=== PATIENT | male | born 1965 | race Caucasian/White ===

== ENCOUNTER → 2018-10-15 | Outpatient (CLI) | payer OTHER ==
--- NOTE | 2018-10-15 11:29 | CARD ---
MR#: [id number] Date of Study: 10/15/2018 Ordering Physician: SONAM OLMSTEAD, Referring Physician: SONAM OLMSTEAD, Tech: Tiki Belle SON APPROVED REPORT EXAM: Two-dimensional and M-mode echocardiogram with Doppler and color Doppler. Other Information Quality : Technically LimitedHR: 80bpm Rhythm : NSRTechnically limited study due to body habitus. INDICATION Cardiomyopathy 2D DIMENSIONS RVDd2.5 (2.9-3.5cm)Left Atrium(2D)3.4 (1.6-4.0cm) IVSd1.2 (0.7-1.1cm)Aortic Root(2D)3.9 (2.0-3.7cm) LVDd5.8 (3.9-5.9cm)LVOT Diameter2.5 (1.8-2.4cm) PWd1.2 (0.7-1.1cm)LVDs5.1 (2.5-4.0cm) FS (%) 13.4 %SV47.7 ml Aortic Valve AoV Peak Babak.105.0cm/sAoV VTI20.8cm AO Peak GR.4.4mmHgLVOT Peak Babak.83.8cm/s LVOT VTI 16.49cmAO Mean GR.3mmHg LILLIAN (VMAX)3.11et5TZN (VTI)3.93cm2 Mitral Valve MV E Rvgxaeyb54.7cm/sMV DECEL GYSO419rd MV A Zepnbzvh72.1cm/sE/A Ratio0.7 MV A Iuczmiun616mu Pulmonary Valve PV Peak Eoszsmqf68.2cm/sPV Peak Grad.3mmHg LEFT VENTRICLE The Left Ventricle is borderline dilated. There is mild concentric left ventricular hypertrophy. The ejection fraction is moderately impaired. The Ejection Fraction is estimated at 35%. There is global hypokinesis of the left ventricle. Transmitral Doppler flow pattern is Grade I-abnormal relaxation pa ttern. RIGHT VENTRICLE The right ventricle is normal size. There is normal right ventricular wall thickness. The right ventr icular systolic function is normal. ATRIA The left atrium size is normal. The right atrium size is normal. The interatrial septum is intact wit h no evidence for an atrial septal defect or patent foramen ovale as noted on 2-D or Doppler imaging. AORTIC VALVE The aortic valve is probably trileaflet. Doppler and Color Flow revealed no significant aortic regurg itation. There is no significant aortic valvular stenosis. MITRAL VALVE The mitral valve is normal in structure and function. There is no evidence of mitral valve prolapse. There is no mitral valve stenosis. Doppler and Color Flow revealed trace mitral valve regurgitation. TRICUSPID VALVE The tricuspid valve is normal in structure and function. Doppler and Color Flow revealed no tricuspid valve regurgitation noted. There is no tricuspid valve prolapse or vegetation. There is no tricuspid valve stenosis. PULMONIC VALVE The pulmonic valve is not well visualized. GREAT VESSELS The aortic root is mildly enlarged. The ascending aorta is normal in size. The IVC is normal in size and collapses >50% with inspiration. PERICARDIAL EFFUSION There is no evidence of significant pericardial effusion. Critical Notification Critical Value: No <Conclusion> The Left Ventricle is borderline dilated. The ejection fraction is moderately impaired. The Ejection Fraction is estimated at 35%. There is global hypokinesis of the left ventricle. There is mild concentric left ventricular hypertrophy. There is no significant aortic valvular stenosis. Doppler and Color Flow revealed no significant aortic regurgitation. Doppler and Color Flow revealed trace mitral valve regurgitation. Doppler and Color Flow revealed no tricuspid valve regurgitation noted. Signed by : Ghassan Floyd MD Electronically Approved : 10/15/2018 11:29:03
== END | disposition home or self-care (01) ==
LOC: ECHO 10:41
PROVIDERS: ATTEND Nurse Practitioner
DX: I51.7 Cardiomegaly (principal); I25.5 Ischemic cardiomyopathy
CPT/HCPCS: 93306

== ENCOUNTER → 2019-01-09 | Outpatient (CLI) | payer OTHER ==
[~2019-01-09] MED LIST: HEPARIN for NUC MED 500 UNIT/5 ML DISP.SYRIN. IV ONE
--- NOTE | 2019-01-24 08:04 | RAD ---
Examination: MUGA History: Cardiomyopathy - heart rate variable 60 - 140 23mci 99mTc RBC for scan Comparison/Correlation: None Findings: 23 mCi technetium 99m UltraTag was utilized for radionuclide ventriculography them. Heart rate during the examination is 89 bpm. Ejection fraction of 28.6 percent is evident. Left ventricular wall motion is within normal limits on images provided. Impression: Low left ventricular ejection fraction of 28.6 percent. Electronically signed by: Danny Beltrán MD (01/24/2019 8:01 AM) [facility]
== END | disposition home or self-care (01) ==
LOC: NM 12:39
PROVIDERS: ATTEND Internal Medicine Cardiovascular Disease
DX: I25.5 Ischemic cardiomyopathy (principal); I10 Essential (primary) hypertension; E11.9 Type 2 diabetes mellitus without complications; Z79.01 Long term (current) use of anticoagulants; Z87.891 Personal history of nicotine dependence
CPT/HCPCS: 78472; A9560

== ENCOUNTER → 2020-07-07 | Outpatient (CLI) | payer OTHER ==
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
--- NOTE | 2020-07-07 13:38 | RAD ---
EXAM: Cervical spine, 6 views. HISTORY: Pain. COMPARISON: None. FINDINGS: 6 views of the cervical spine are obtained. There is degenerative endplate remodeling predo minantly at the mid lower cervical levels. There is disc space narrowing at C5-C6. There is facet and uncovertebral arthropathy at C5-C6 and C6-C7. There is a cardiac pacemaker partially included on the [id number]. IMPRESSION: Degenerative change primarily at the lower cervical levels. No acute osseous finding. Electronically signed by: Ursula Bowie MD (07/07/2020 1:36 PM) [email or web address]
== END ==
LOC: PMG 12:39
PROVIDERS: ATTEND Physician Assistant
DX: M47.816 Spondylosis without myelopathy or radiculopathy, lumbar region (principal); M47.812 Spondylosis without myelopathy or radiculopathy, cervical region; M48.07 Spinal stenosis, lumbosacral region; M48.02 Spinal stenosis, cervical region; Z95.0 Presence of cardiac pacemaker
CPT/HCPCS: 72050; 72110

== ENCOUNTER → 2020-07-12 | Outpatient (CLI) | payer OTHER ==
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
== END ==
LOC: CT 10:56
PROVIDERS: ATTEND Nurse Practitioner Family
DX: M47.817 Spondylosis without myelopathy or radiculopathy, lumbosacral region (principal); M51.27 Other intervertebral disc displacement, lumbosacral region; M25.78 Osteophyte, vertebrae; M48.07 Spinal stenosis, lumbosacral region; V87.7XXD Person injured in collision between other specified motor vehicles (traffic), subsequent encounter
CPT/HCPCS: 72131

== ENCOUNTER → 2020-11-23 | Outpatient (CLI) | payer OTHER ==
--- NOTE | 2020-11-24 20:30 | CARD ---
MR#: [id number] Date of Study: 11/23/2020 Ordering Physician: GENEVIEVE ARMSTRONG, Referring Physician: GENEVIEVE ARMSTRONG, Tech: Kimmy Roberts, [facility] APPROVED REPORT EXAM: Two-dimensional and M-mode echocardiogram with Doppler and color Doppler. Other Information Quality : AverageHR: 81bpm Technically limited study due to body habitus. INDICATION Cardiac Disease: CAD Surgery/Intervention ICD/Pacemaker: Date: 2018 RISK FACTORS Hypertension Diabetes Smoking 2D DIMENSIONS Left Atrium(2D)3.1 (1.6-4.0cm)IVSd1.3 (0.7-1.1cm) Aortic Root(2D)3.6 (2.0-3.7cm)LVDd5.6 (3.9-5.9cm) LVOT Diameter2.3 (1.8-2.4cm)PWd1.4 (0.7-1.1cm) LVDs4.7 (2.5-4.0cm)FS (%) 16.5 % SV53.5 mlLVEF(%)34.2 (>50%) Aortic Valve AoV Peak Babak.132.0cm/sAoV VTI24.4cm AO Peak GR.5.9mmHgLVOT Peak Babak.101.8cm/s LVOT VTI 17.64cmAO Mean GR.4mmHg LILLIAN (VMAX)3.19td3JZX (VTI)3.04cm2 Mitral Valve MV E Aaallpwk67.7cm/sMV DECEL LMBF156lk MV A Nrdtfpuj84.1cm/sE/A Ratio0.6 Pulmonary Valve PV Peak Ajzwtbma84.4cm/sPV Peak Grad.3mmHg Tricuspid Valve TR P. Pultjryp711ko/sRAP ZNXLFWNE3tcWg TR Peak Gr.06sjLwIVGA58fhDm Pulmonary Vein S1 Vttxhvxn41.5cm/sD2 Nhsbpmzz14.0cm/s LEFT VENTRICLE The left ventricle is normal size. There is mild to moderate concentric left ventricular hypertrophy. The left ventricular systolic function is normal. The Ejection Fraction is 50-55%. There is normal L V segmental wall motion. Transmitral Doppler flow pattern is Grade I-abnormal relaxation pattern. RIGHT VENTRICLE The right ventricle is normal size. There is normal right ventricular wall thickness. The right ventr icular systolic function is normal. ATRIA The left atrium size is normal. The right atrium size is normal. The interatrial septum is intact wit h no evidence for an atrial septal defect or patent foramen ovale as noted on 2-D or Doppler imaging. AORTIC VALVE The aortic valve is normal in structure and function. Doppler and Color Flow revealed no significant aortic regurgitation. There is no significant aortic valvular stenosis. Calculated aortic valve area is 3.0 cm2 with maximum pressure gradient of 7 mmHg and mean pressure gradient of 4 mmHg. MITRAL VALVE The mitral valve is normal in structure and function. There is no evidence of mitral valve prolapse. There is no mitral valve stenosis. Doppler and Color Flow revealed no mitral valve regurgitation note d. TRICUSPID VALVE The tricuspid valve is normal in structure and function. Doppler and Color Flow revealed trace tricus pid regurgitation with an estimated PAP of 17 mmHg. There is no tricuspid valve stenosis. PULMONIC VALVE The pulmonic valve is not well visualized. Doppler and Color Flow revealed no pulmonic valvular regur gitation. GREAT VESSELS The aortic root is normal in size. The ascending aorta is normal in size. The IVC is normal in size a nd collapses >50% with inspiration. PERICARDIAL EFFUSION There is no evidence of significant pericardial effusion. Critical Notification Critical Value: No <Conclusion> The left ventricular systolic function is normal. The Ejection Fraction is 50-55%. There is normal LV segmental wall motion. Transmitral Doppler flow pattern is Grade I-abnormal relaxation pattern. Trace tricuspid regurgitation with an estimated PAP of 17 mmHg. There is no evidence of significant pericardial effusion. Signed by : Mor Rodriguez, Electronically Approved : 11/24/2020 20:29:37
== END ==
LOC: ECHO 14:52
PROVIDERS: ATTEND Internal Medicine Cardiovascular Disease
DX: I51.7 Cardiomegaly (principal); I25.10 Atherosclerotic heart disease of native coronary artery without angina pectoris
CPT/HCPCS: 93306

== ENCOUNTER → 2020-12-21 | Outpatient (CLI) | payer OTHER ==
[2020-12-21 11:00] LABS: BASO # 0.1 x10^3/uL (0.0-0.2); BASO % 1 % (0-3); EOS # 0.3 x10^3/uL (0.0-0.7); EOS % 3 % (0-3); HEMATOCRIT 45.5 % (39.0-53.0); HEMOGLOBIN 15.6 g/dL (13.0-17.5); LYMPH # 2.4 x10^3/uL (1.0-4.8); LYMPH % 26 % (24-48); MEAN CORPUSCULAR HEMOGLOBIN 33 pg (25-35); MEAN CORPUSCULAR HGB CONC 34 g/dL (31-37); MEAN CORPUSCULAR VOLUME 95 fL (79-100); MONO # 0.8 x10^3/uL (0.0-1.1); MONO % 8 % (0-9); NEUT # 5.8 x10^3uL (1.8-7.7); NEUT % 63 % (31-73); PLATELET COUNT 185 x10^3/uL (140-400); RED BLOOD COUNT 4.77 x10^6/uL (4.30-5.70); RED CELL DISTRIBUTION WIDTH 13.6 % (11.5-14.5); WHITE BLOOD COUNT 9.4 x10^3/uL (4.0-11.0)
[2020-12-21 11:27] LABS: ALBUMIN 3.4 g/dL (3.4-5.0); CALCIUM 8.5 mg/dL (8.5-10.1); CREATININE 0.9 mg/dL (0.7-1.3); GFR 87.6; POTASSIUM 3.7 mmol/L (3.5-5.1); TOTAL BILIRUBIN 0.7 mg/dL (0.2-1.0); TOTAL PROTEIN 6.9 g/dL (6.4-8.2)
== END ==
LOC: LAB 09:49
PROVIDERS: ATTEND Internal Medicine Cardiovascular Disease
DX: I25.5 Ischemic cardiomyopathy (principal)
CPT/HCPCS: 36415; 80053; 80061; 83880; 85025